=== PATIENT | female | born 1965 | race Caucasian/White ===

== ENCOUNTER 2022-03-12 15:08 | Outpatient (REF) | payer OTHER, SELFPAY ==
[2022-03-12 16:52] LABS: Alanine Aminotransferase 41 U/L (0-31); Albumin Level 4.8 g/dL (3.5-5.0); Alkaline Phosphatase 69 U/L (39-117); Aspartate Amino Transferase 38 U/L (5-31); Bilirubin Direct < 0.2 mg/dL (0.0-0.5); Bilirubin Total 0.3 mg/dL (0.0-1.0); Lipase 107 U/L (8-78); Total Protein 8.8 g/dL (6.5-8.0)
[2022-03-20 14:07] LABS: Transglutaminase Ab IgG 2.4 U/mL; Transglutaminase IgA <1.0 U/mL
== END 2022-03-12 15:09 | disposition home or self-care (01) ==
LOC: HO.LAB 15:08
PROVIDERS: PCP Hospitalist; Visit Provider Nurse Practitioner Family
DX: R10.9 Unspecified abdominal pain (principal); K21.9 Gastro-esophageal reflux disease without esophagitis; K58.2 Mixed irritable bowel syndrome; R14.0 Abdominal distension (gaseous)
CPT/HCPCS: 80076; 83690; 86364; 99202

== ENCOUNTER → 2022-03-15 09:57 | Outpatient (BNVA) | payer OTHER, SELFPAY | PROVIDERS: PCP Hospitalist; Visit Provider Nurse Practitioner Family | DX: G43.109 Migraine with aura, not intractable, without status migrainosus (principal); F09 Unspecified mental disorder due to known physiological condition; F07.81 Postconcussional syndrome; F98.8 Other specified behavioral and emotional disorders with onset usually occurring in childhood and adolescence; F41.9 Anxiety disorder, unspecified; R20.1 Hypoesthesia of skin | CPT/HCPCS: 99202 ==

== ENCOUNTER 2022-03-27 10:20 | Outpatient (REF) | payer OTHER, SELFPAY ==
[2022-04-01 19:27] LABS: Calprotectin, Fecal 449 mcg/g
[2022-04-06 16:46] LABS: Pancreatic Elastase-1 214 mcg/g
== END 2022-03-27 10:21 | disposition home or self-care (01) ==
LOC: HO.LNP 10:20
PROVIDERS: Visit Provider Nurse Practitioner Family
DX: R10.9 Unspecified abdominal pain (principal); K21.9 Gastro-esophageal reflux disease without esophagitis
CPT/HCPCS: 82656; 83993; 87338